=== PATIENT | female | born 1990 | race Caucasian/White ===

== ENCOUNTER 2017-02-02 09:17 | Emergency (ER) | payer OTHER ==
[2017-02-02 10:32] LABS: HEMOGLOBIN 13.5 gm/dl (12.3-15.3); RED BLOOD COUNT 4.99 M/UL (4.00-5.10)
[2017-02-02 10:49] LABS: BUN/CREATININE RATIO 16 (0-10)
== END 2017-02-02 13:55 | disposition home or self-care (01) ==
LOC: ER1 09:17
PROVIDERS: Physician Assistant
DX: R10.30 Lower abdominal pain, unspecified (principal); R11.0 Nausea; Z90.49 Acquired absence of other specified parts of digestive tract; Z88.0 Allergy status to penicillin
CPT/HCPCS: 36415; 80053; 81001; 84703; 85025; 87086; 96374; 99284; J2270; J2405; J7050; Q9962